=== PATIENT | female | born 1960 | race Caucasian/White ===

== ENCOUNTER 2017-01-26 07:09 | Emergency (ER) | payer OTHER ==
[~2017-01-26] VITALS: Ht 157.5 cm; Wt 71.6 kg
[2017-01-26 07:14] VITALS: BP 114/68; PULSE 68; RESP 16; TEMP 100; O2SAT 96
--- NOTE | 2017-01-26 07:28 | PD ---
HPI Chief Complaint: GI Complaint Time Seen by Provider: 07:25 Travel History International Travel<30 days: No Contact w/Intl Traveler<30days: No Traveled to known affect area: No History of Present Illness HPI n/v/d/ crampy abd pain as well PFSH Past Medical History ?: Not Social History Tobacco Use: No Allergies-Medications (Allergen,Severity, Reaction): Coded Allergies: Codeine (Verified Allergy, Intermediate, GI UPSET, 01/26/17) Reported Meds & Prescriptions Reported Meds & Active Scripts Active Reported Omeprazole 20 Mg Tab 20 Mg PO DAILY Review of Systems Except as stated in HPI: all other systems reviewed are Neg Gastrointestinal: Positive: Nausea, Vomiting, Diarrhea Physical Exam Narrative GENERAL: SKIN: Warm and dry. HEAD: Atraumatic. Normocephalic. EYES: Pupils equal and round. No scleral icterus. No injection or drainage. ENT: No nasal bleeding or discharge. Mucous membranes pink and moist. NECK: Trachea midline. No JVD. CARDIOVASCULAR: Regular rate and rhythm. RESPIRATORY: No accessory muscle use. Clear to auscultation. Breath sounds equal bilaterally. GASTROINTESTINAL: Abdomen soft, non-tender, nondistended. Hepatic and splenic margins not palpable. MUSCULOSKELETAL: Extremities without clubbing, cyanosis, or edema. No obvious deformities. NEUROLOGICAL: Awake and alert. No obvious cranial nerve deficits. Motor grossly within normal limits. Five out of 5 muscle strength in the arms and legs. Normal speech. PSYCHIATRIC: Appropriate mood and affect; insight and judgment normal. Data Data Last Documented VS Vital Signs Date Time Temp Pulse Resp B/P Pulse Ox O2 Delivery O2 Flow Rate FiO2 01/26/17 08:35 85 18 113/70 95 Room Air 01/26/17 07:14 100.0 Orders Complete Blood Count With Diff (01/26/17 07:26) Comprehensive Metabolic Panel (01/26/17 07:26) Lipase (01/26/17 07:26) Abdomen, Flat & Upright (01/26/17 ) Iv Access Insert/Monitor (01/26/17 07:26) Ecg Monitoring (01/26/17 07:26) Oximetry (01/26/17 07:26) Hydromorphone Pf Inj (Dilaudid Pf Inj) (01/26/17 08:00) Ondansetron Inj (Zofran Inj) (01/26/17 08:00) Sodium Chloride 0.9% Flush (Ns Flush) (01/26/17 08:00) Labs Laboratory Tests Test 01/26/17 07:43 White Blood Count 8.6 TH/MM3 Red Blood Count 4.68 MIL/MM3 Hemoglobin 13.9 GM/DL Hematocrit 41.0 % Mean Corpuscular Volume 87.6 FL Mean Corpuscular Hemoglobin 29.7 PG Mean Corpuscular Hemoglobin 33.9 % Concent Red Cell Distribution Width 12.6 % Platelet Count 188 TH/MM3 Mean Platelet Volume 9.3 FL Neutrophils (%) (Auto) 76.0 % Lymphocytes (%) (Auto) 14.2 % Monocytes (%) (Auto) 9.3 % Eosinophils (%) (Auto) 0.0 % Basophils (%) (Auto) 0.5 % Neutrophils # (Auto) 6.6 TH/MM3 Lymphocytes # (Auto) 1.2 TH/MM3 Monocytes # (Auto) 0.8 TH/MM3 Eosinophils # (Auto) 0.0 TH/MM3 Basophils # (Auto) 0.0 TH/MM3 CBC Comment DIFF FINAL Differential Comment Sodium Level 136 MEQ/L Potassium Level 3.4 MEQ/L Chloride Level 102 MEQ/L Carbon Dioxide Level 25.3 MEQ/L Anion Gap 9 MEQ/L Blood Urea Nitrogen 10 MG/DL Creatinine 0.97 MG/DL Estimat Glomerular Filtration 60 ML/MIN Rate Random Glucose 128 MG/DL Calcium Level 8.8 MG/DL Total Bilirubin 0.3 MG/DL Aspartate Amino Transf 26 U/L (AST/SGOT) Alanine Aminotransferase 16 U/L (ALT/SGPT) Alkaline Phosphatase 98 U/L Total Protein 7.2 GM/DL Albumin 3.1 GM/DL Lipase 179 U/L [facility] Medical Decision Making Medical Screen Exam Complete: Yes Emergency Medical Condition: Yes Medical Record Reviewed: Yes Differential Diagnosis viral vs bacterial enteritis vs food poisoning Narrative Course BASED ON LEFT SHIFT OF NEUTROPHILIA, SUGGESTIVE OF BACTERIAL SOURCE, ELECTROLYTES AND LFT'S WNL, WILL D/C ON ABX PO Diagnosis Primary Impression: Bacterial gastroenteritis Patient Instructions: Enteritis (ED), General Instructions Scripts Ondansetron Odt (Zofran Odt)4 Mg Tab4 Mg SL Q6HR PRN (Nausea/Vomiting) #20 TAB Ref 0 Prov:Karri Shin MD 01/26/17 Tramadol (Ultram)50 Mg Tab50 Mg PO Q4H PRN (PAIN) #20 TAB Ref 0 Prov:Karri Shin MD 01/26/17 Metronidazole (Flagyl)500 Mg [id number] Mg PO TID #21 TAB Ref 0 Prov:Karri Shin MD 01/26/17 Ciprofloxacin (Cipro)500 Mg [id number] Mg PO BID #14 TAB Ref 0 Prov:Karri Shin MD 01/26/17 Disposition: 01 DISCHARGE HOME Condition: Stable Karri Sihn MD Jan 26, 2017 07:28
[2017-01-26] MEDS ORDERED: OMEP20TA PO (07:34)
[2017-01-26 07:46] VITALS: O2SAT 96
[2017-01-26 07:59] LABS: AUTOMATED NEUTROPHIL # 6.6 TH/MM3 (1.8-7.7); BASOPHIL % 0.5 % (0.0-2.0); CHLORIDE 102 MEQ/L (98-107); LYMPH % 14.2 % (9.0-44.0); LYMPHOCYTE # 1.2 TH/MM3 (1.0-4.8); MEAN CELL VOLUME 87.6 FL (80.0-100.0); MEAN CORPUSCULAR HEMOGLOBIN 29.7 PG (27.0-34.0); MEAN CORPUSCULAR HGB CONC 33.9 % (32.0-36.0); MONO % 9.3 % (0.0-8.0); PLATELET COUNT 188 TH/MM3 (150-450); POTASSIUM 3.4 MEQ/L (3.5-5.1); RED BLOOD COUNT 4.68 MIL/MM3 (4.00-5.30); RED CELL DISTRIBUTION WIDTH 12.6 % (11.6-17.2); SODIUM (NA) 136 MEQ/L (136-145); WHITE BLOOD COUNT 8.6 TH/MM3 (4.0-11.0)
[2017-01-26 08:00] LABS: HEMO FLAGS DIFF FINAL
[2017-01-26] MEDS ORDERED: ONDANSETRON HCL 4 MG/2 ML VIAL IVP ONE (08:00)
[2017-01-26] MEDS ORDERED: HYDROmorphone HCL PF 2 MG/ML VIAL IVS ONE (08:00)
[2017-01-26] MEDS ORDERED: SODIUM CHLORIDE 0.9% FLUSH 10 ML FLUSH IV FLUSH PRN (08:00)
[2017-01-26 08:04] LABS: ANION GAP 9 MEQ/L (5-15); BICARBONATE 25.3 MEQ/L (21.0-32.0); BLOOD UREA NITROGEN 10 MG/DL (7-18)
[2017-01-26 08:07] LABS: ALT (GPT) 16 U/L (10-53); AST (GOT) 26 U/L (15-37); GLOMERULAR FILTRATION RATE 60 ML/MIN (>89)
[2017-01-26 08:08] LABS: TOTAL BILIRUBIN ADULT 0.3 MG/DL (0.2-1.0)
--- NOTE | 2017-01-26 08:09 | RADHPO ---
EXAM DATE/TIME: 01/26/2017 07:37 [place] COMPARISON: No previous studies available for comparison. INDICATIONS : Abdomen pain, nausea, diarrhea MEDICAL HISTORY : None. SURGICAL HISTORY : section. spinal ENCOUNTER: Initial ACUITY: 3 days PAIN SCORE: 8/10 LOCATION: Bilateral abdomen FINDINGS: Supine and upright views of the abdomen demonstrate air within small and large bowel in a nonobstruct franko pattern. No organomegaly or abnormal calcifications are identified. No abnormal mass effect is ap preciated. Upright image demonstrates no free intraperitoneal air or significant air-fluid level. Vis ualized bones demonstrate no acute finding and lower lung zones are clear. Cholecystectomy clips are present. There is mild dextroscoliosis the lumbar spine. CONCLUSION: No acute abdominal abnormality is identified. Lance Elliott MD on January 26, 2017 at 8:06 Board Certified Radiologist. This report was verified electronically.
[2017-01-26 08:10] LABS: ALKALINE PHOSPHATASE 98 U/L (45-117)
[2017-01-26 08:35] VITALS: BP 113/70; PULSE 85; RESP 18; O2SAT 95
[2017-01-26] MEDS ORDERED: METR-1 PO (08:49)
[2017-01-26] MEDS ORDERED: ULTR50TA5 PO (08:49)
[2017-01-26] MEDS ORDERED: ZOFR4TAB3 SL (08:49)
[2017-01-26] MEDS ORDERED: CIPR-9 PO (08:49)
[2017-01-26] MEDS ORDERED: SODIUM CHLOR 0.9% 1000 ML INJ 1,000 ML IV ONE (09:15)
[2017-01-26 09:41] VITALS: BP 99/54; PULSE 78; RESP 18; O2SAT 92
== END 2017-01-26 10:14 | disposition home or self-care (01) ==
LOC: PHED 07:09
DX: A04.9 Bacterial intestinal infection, unspecified (principal)
CPT/HCPCS: 74020; 80053; 83690; 85025; 96361; 96374; 96375; 99284; J1170; J2405; J7030